=== PATIENT | male | born 2000 | race Caucasian/White ===

== ENCOUNTER 2023-01-30 20:57 | Emergency (ER) | payer BC ==
[2023-01-30 21:20] VITALS: BP 148/74; PULSE 66; RESP 16; TEMP 97.6; BMI 25.8
== END 2023-01-30 21:26 | disposition home or self-care (01) ==
LOC: FER 20:57
PROC: 2W3FX1Z Immobilization of Left Hand using Splint (ICD-10-PCS; principal; 2023-01-30)
DX: S62.92XA Unspecified fracture of left hand, initial encounter for closed fracture (principal); W11.XXXA Fall on and from ladder, initial encounter
CPT/HCPCS: 99282-25